=== PATIENT | male | born 1985 | race American Indian/Alaskan Native ===

== ENCOUNTER 2021-07-22 11:08 | Emergency (ER) | payer SELFPAY ==
[2021-07-22 12:24] VITALS: BP 178/106
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
== END 2021-07-22 15:45 | disposition home or self-care (01) ==
LOC: ED 11:08
DX: S91.332A Puncture wound without foreign body, left foot, initial encounter (principal); Z79.899 Other long term (current) drug therapy; X58.XXXA Exposure to other specified factors, initial encounter; Y93.89 Activity, other specified; Y92.89 Other specified places as the place of occurrence of the external cause; Y99.8 Other external cause status